=== PATIENT | female | born 1955 | race Caucasian/White ===

== ENCOUNTER 2017-09-07 05:24 | Inpatient (IN) | payer OTHER ==
[~2017-09-07] VITALS: Ht 154.9 cm; Wt 103.1 kg
[~2017-09-07 05:24] MED LIST: ADVA100A INH; FOLI1TAB6 PO; IPRAAER INH; LEVO150T7 PO; METH2.5T PO; PRIL20TA2 PO; PROZ20CA11 PO; VITA100018 PO
[2017-09-07] MEDS ORDERED: POVIDONE IODINE 5% (ANTISEPSIS KIT) 4 APPLICATIONS EACH NARE PRN (06:00)
[2017-09-07] MEDS ORDERED: ACETAMINOPHEN 1000 MG/100 ML 100 ML IV SCH (06:00)
[2017-09-07] MEDS ORDERED: INSULIN HUMAN REGULAR 1,000 UNITS/10 ML VIAL SQ PRN (06:00)
[2017-09-07] MEDS ORDERED: SODIUM CHLORID 0.9% 500 ML IV PRN (06:00)
[2017-09-07] MEDS ORDERED: APREPITANT 40 MG CAP PO SCH (06:00)
[2017-09-07] MEDS ORDERED: SCOPOLAMINE 1.5 MG PATCH T-DERMAL SCH (06:00)
[2017-09-07] MEDS ORDERED: LACTATED RINGER'S 1000 ML IV PRN (06:00)
[2017-09-07] MEDS ORDERED: CHLORHEXIDINE GLUCONATE 2 % 1 PACK (2 CLOTHS) TOPICAL PRN (06:00)
[2017-09-07] MEDS ORDERED: metroNIDAZOLE 500 MG INJ 100 ML IV SCH (06:00)
[2017-09-07] MEDS ORDERED: ONDANSETRON HCL 4 MG/2 ML VIAL IV PUSH SCH (06:00)
[2017-09-07] MEDS ORDERED: ceFAZolin 2 GM PREMIX 50 ML IV SCH (06:00)
[2017-09-07] MEDS ORDERED: METOPROLOL TARTRATE 25 MG TAB PO PRN (06:00)
[2017-09-07] MEDS ORDERED: BUPIVACAINE/EPINEPHRINE 0.25% PF 30 ML VIAL ONE (06:43)
[2017-09-07] MEDS ORDERED: DO NOT ADM ANY ANTICOAGULANT DRUGS PRN (09:40)
[2017-09-07] MEDS ORDERED: *ONDANSETRON 4 MG VIAL PERIprocedural Use ONLY ONE (09:44)
[2017-09-07] MEDS ORDERED: diphenhydrAMINE HCL 50 MG/ML VIAL IV PUSH PRN (09:45)
[2017-09-07] MEDS ORDERED: ENALAPRILAT 1.25 MG/ML VIAL IV PUSH PRN (09:45)
[2017-09-07] MEDS ORDERED: SODIUM CHLORIDE 0.9% FLUSH 10 ML FLUSH IV FLUSH PRN (09:45)
[2017-09-07] MEDS ORDERED: diphenhydrAMINE HCL ELIXIR 12.5 MG/5 ML CUP PO PRN (09:45)
[2017-09-07] MEDS ORDERED: Post-op Orders (for Pharmacy) MISC OTHER ONE (09:45)
[2017-09-07] MEDS ORDERED: *HYDROmorphone PF 1 MG VIAL PERIprocedural Use ONLY ONE (09:59)
[2017-09-07] MEDS ORDERED: *PROMETHAZINE 25 MG/ML VIAL PERIprocedural use ONLY ONE (09:59)
--- NOTE | 2017-09-07 10:00 | HHI.PR ---
Immediate Post Op Note Procedure Date: Sep 07, 2017 Pre Op Diagnosis: morbid obesity bmi 43, multiple comorbidities Post Op Diagnosis: same Surgeon: Mik Jacobs MD Retort Or Condenser Press Operator(s): Dr. Tang Procedure: lap sleeve, lap HH repair Findings: hiatal hernia, no leak with methylene blue Complications: none Specimen(s) removed: none Estimated blood loss: 10cc Anesthesia: General Drains: None Patient to: PACU Patient Condition: Good Mik Jacobs MD Sep 07, 2017 10:00
[2017-09-07] MEDS: D5-1/2 NS + KCL 20 MEQ INJ 1,000 ML IV SCH ×2 (10:20→20:00)
[2017-09-07] MEDS ORDERED: MORPHINE SULFATE 30 MG/30 ML PCA ONE (10:32)
[2017-09-07] MEDS ORDERED: NALOXONE HCL 0.4 MG/ML AMP IV PUSH PRN (10:45)
[2017-09-07] MEDS ORDERED: MORPHINE SULFATE 30 MG/30 ML PCA IV SCH (11:00)
[2017-09-07] MEDS ORDERED: METHYLENE BLUE 100 MG/10 ML VIAL OTHER ONE (12:00)
[2017-09-07] MEDS: PANTOPRAZOLE SOD 40 MG DELAYED RELEASE TAB PO SCH (12:00)
[2017-09-07] MEDS: METOCLOPRAMIDE HCL 10 MG/2 ML VIAL IV PUSH SCH ×3 (12:00→23:59)
[2017-09-07] MEDS: SODIUM CHLORIDE 0.9% FLUSH 10 ML FLUSH IV FLUSH SCH ×2 (12:00→20:31)
[2017-09-07] MEDS: ACETAMINOPHEN 1000 MG/100 ML 100 ML IV SCH ×3 (12:00→23:59)
[2017-09-07 14:00] VITALS: BP 146/69; PULSE 76; RESP 16; TEMP 96.3; O2SAT 95
[2017-09-07] MEDS: PCA - TOTAL MG MORPHINE DELIVERED PER SHIFT SCH ×2 (14:00→22:00)
[2017-09-07] MEDS: ENOXAPARIN SODIUM 40 MG/0.4 ML SYRINGE SQ SCH (14:49)
[2017-09-07] MEDS: metroNIDAZOLE 500 MG INJ 100 ML IV SCH ×2 (14:50→22:47)
[2017-09-07 16:00] VITALS: BP 144/69; PULSE 67; RESP 17; TEMP 96.4; O2SAT 93
[2017-09-07 16:45] VITALS: O2SAT 93
[2017-09-07 19:59] VITALS: O2SAT 95
[2017-09-07 20:43] VITALS: BP 181/80; PULSE 77; RESP 16; TEMP 97.4; O2SAT 96
[2017-09-08] VITALS (8 sets, daily range): BP systolic 142–208; BP diastolic 63–95; PULSE 60–83; RESP 16–20; TEMP 96.9–98.8; O2SAT 92–96
[2017-09-08] MEDS: ENALAPRILAT 2.5 MG/2 ML VIAL IV PUSH PRN ×3 (00:35→21:27)
[2017-09-08] MEDS: D5-1/2 NS + KCL 20 MEQ INJ 1,000 ML IV SCH ×3 (04:00→20:29)
[2017-09-08] MEDS: ACETAMINOPHEN 1000 MG/100 ML 100 ML IV SCH (05:22)
[2017-09-08] MEDS: METOCLOPRAMIDE HCL 10 MG/2 ML VIAL IV PUSH SCH (05:22)
[2017-09-08] MEDS: PCA - TOTAL MG MORPHINE DELIVERED PER SHIFT SCH (06:00)
--- NOTE | 2017-09-08 06:00 | MP ---
cc: EDUARDO JACOBS MD DATE OF SURGERY 09/07/2017 PREOPERATIVE DIAGNOSIS Morbid obesity, BMI of 44, multiple comorbidities. POSTOPERATIVE DIAGNOSES 1. Morbid obesity, BMI of 44, multiple comorbidities. 2. Hiatal hernia. PROCEDURE PERFORMED 1. Laparoscopic vertical sleeve gastrectomy over a 36-rench ViSiGi bougie. 2. Laparoscopic hiatal hernia repair. SURGEON Dr. Eduardo Jacobs EXPORT FREIGHT CLERK Dr. Hong Tang. The assistance of Dr. Hong Tang was necessary due to the complexity of the laparoscopic case. ANESTHESIA GETA. IV FLUIDS See anesthesia sheet. ESTIMATED BLOOD LOSS 10 cc. DRAINS None. COMPLICATIONS None. SPECIMENS None. WOUND CLASSIFICATION Clean/contaminated. INDICATION The patient is a 62-year-old female who presents with morbid obesity, multiple attempts at weight loss without success. The patient with a BMI of 44 and complications of multiple comorbidities needing elective sleeve gastrectomy. The patient also found to have hiatal hernia on endoscopy and therefore necessitating repair. FINDINGS Moderate-sized hiatal hernia. No leak on methylene blue infusion. DETAILS OF PROCEDURE The patient was taken to the operating suite, placed in supine position. She was prepped and draped in the usual sterile fashion after induction of general endotracheal anesthesia. Brief time-out was done stating correct patient, procedure surgical site. We were all in agreement with this. Attention was first directed to the subxiphoid, 15 cm distal to this in the midline. Local anesthetic injected and the skin incision made with an 11-blade. OptiView 5-mm port was used under direct visualization. Pneumoperitoneum was obtained to 15 mm pneumoperitoneum. Several other trocars were placed including right upper quadrant 5-mm liver retractor trocar, followed by a 15-mm right lower quadrant trocar, followed by a 5-mm left lower quadrant trocar and then another 5-mm left upper quadrant trocar. All ports were placed after injection of local anesthetic and under direct visualization. The patient then placed in reverse Trendelenburg and airplaned to the right. Haleigh-Flex liver retractor was placed to retract the left lobe of the liver. On close observation, noticed the hiatus had a significant hiatal hernia. The greater curvature of the stomach was using harmonic scalpel from approximately 5 cm proximal of the pylorus, carried up to the angle of His. The angle of His was taken down bluntly. Posterior ligament attachments were also placed. A 36-Turkmen bougie was then advanced at the start of the case. Attention was directed to the hiatus. The hiatus was dissected free and the stomach was reduced into the abdominal cavity once the crura on both left and right were skeletonized and identified. The hiatus was closed over the 36-Turkmen ViSiGi using 0-0 silk sutures intracorporeally in [id number] fashion. Next the division of the stomach was commenced and a sleeve gastrectomy 5 cm proximal to the pylorus toward the angle of His in order to remove approximately 80% of the stomach. This was done with Endo-BETHANY stapler initially black load, followed by green load and then four gold loads with reinforced SeamGuard. This was done 2 cm from the angle of incisura staple line close to the GE junction. Next, methylene blue was instilled, 120 cc, to confirm no leaking of the staple line and there was no evidence of extravasation. Next the gastrocolic ligament was sutured to the staple line SeamGuard using a Stratafix unidirectional suture 2-0. Next, Evicel was then sprayed along the staple line. Next, the liver retractor was removed. The sleeve gastrectomy stomach was removed from the 15-mm trocar. The 15-mm trocar site was closed with a [id number] 0 Vicryl and the suture passer. Pneumoperitoneum was removed. Incisions were closed with a 4-0 Monocryl. Sterile dressings then placed. The patient tolerated procedure well. There was no intraoperative complication. All lap and instrument counts were correct at the end of the procedure. The patient was extubated and taken stable to the PACU. MD JAH Benoit/FAVIAN /5:58 PM /5:33 AM
[2017-09-08] MEDS: metroNIDAZOLE 500 MG INJ 100 ML IV SCH (06:34)
[2017-09-08 08:35] LABS: AUTOMATED NEUTROPHIL # 5.9 TH/MM3 (1.8-7.7); BASOPHIL % 0.2 % (0.0-2.0); EOSINOPHIL % 0.2 % (0.0-4.0); HEMATOCRIT 40.8 % (35.0-46.0); HEMO FLAGS DIFF FINAL; LYMPH % 18.2 % (9.0-44.0); LYMPHOCYTE # 1.5 TH/MM3 (1.0-4.8); MEAN CELL VOLUME 99.7 FL (80.0-100.0); MEAN CORPUSCULAR HGB CONC 34.1 % (32.0-36.0); MONO % 9.2 % (0.0-8.0); NEUT % 72.2 % (16.0-70.0); PLATELET COUNT 156 TH/MM3 (150-450); RED CELL DISTRIBUTION WIDTH 13.5 % (11.6-17.2); WHITE BLOOD COUNT 8.2 TH/MM3 (4.0-11.0)
[2017-09-08] MEDS: SODIUM CHLORIDE 0.9% FLUSH 10 ML FLUSH IV FLUSH SCH ×2 (09:00→20:28)
[2017-09-08] MEDS: PANTOPRAZOLE SOD 40 MG DELAYED RELEASE TAB PO SCH (09:00)
[2017-09-08 09:05] LABS: BICARBONATE 26.6 MEQ/L (21.0-32.0)
[2017-09-08] MEDS: HYOSCYAMINE 0.125 MG TAB PO SCH ×4 (11:00→23:00)
[2017-09-08] MEDS: ONDANSETRON HCL 4 MG/2 ML VIAL IV PUSH PRN (11:28)
[2017-09-08] MEDS: METOCLOPRAMIDE HCL 10 MG/2 ML VIAL IV PUSH PRN ×2 (13:44→23:55)
[2017-09-08] MEDS: ENOXAPARIN SODIUM 40 MG/0.4 ML SYRINGE SQ SCH (15:57)
--- NOTE | 2017-09-08 16:48 | HHI.PR ---
Subjective Subjective Notes C/O 'crampy'' epigastric pain Going slow with fluids Objective Vitals/I&O Vital Signs Date Time Temp Pulse Resp B/P (MAP) Pulse Ox O2 Delivery O2 Flow Rate FiO2 09/08/17 12:00 96.9 77 17 161/74 (103) 92 09/07/17 16:45 Nasal Cannula 1.50 Labs Laboratory Tests Test 09/08/17 07:22 White Blood Count 8.2 Red Blood Count 4.10 Hemoglobin 13.9 Hematocrit 40.8 Mean Corpuscular Volume 99.7 Mean Corpuscular Hemoglobin 34.0 Mean Corpuscular Hemoglobin Concent 34.1 Red Cell Distribution Width 13.5 Platelet Count 156 Mean Platelet Volume 8.6 Neutrophils (%) (Auto) 72.2 Lymphocytes (%) (Auto) 18.2 Monocytes (%) (Auto) 9.2 Eosinophils (%) (Auto) 0.2 Basophils (%) (Auto) 0.2 Neutrophils # (Auto) 5.9 Lymphocytes # (Auto) 1.5 Monocytes # (Auto) 0.8 Eosinophils # (Auto) 0.0 Basophils # (Auto) 0.0 CBC Comment DIFF FINAL Differential Comment Blood Urea Nitrogen 7 Creatinine 0.80 Random Glucose 121 Calcium Level 8.4 Magnesium Level 2.0 Sodium Level 138 Potassium Level 4.0 Chloride Level 104 Carbon Dioxide Level 26.6 Anion Gap 7 Estimat Glomerular Filtration Rate 73 Abdomen: Post-op tenderness Extremities: Perfused Wound Wound : Wound Location: Abdomen Appearance: Clean & Dry A/P Assessment and Plan 62yo F laparoscopic POD#1 VSG with hiatal hernia repair -Added Levsin and will add Carafate for epigastric discomfort -Decrease IVF to 100ml/hr -Transition to oral pain control -Continue to increase oral intake as tolerated -Continue with frequent ambulation Discharge Planning D/C home tomorrow Attending Statement patient seen at bedside some burning but doing well ambulating d/c tomorrow Attestation The exam, history, and the medical decision-making described in the above note were completed with the assistance of the mid-level provider. I reviewed and agree with the findings presented. I attest that I had a [id number] encounter with the patient on the same day, and personally performed and documented my assessment and findings in the medical record. Sherrie Levin Sep 08, 2017 16:48 Mik Jacobs MD Sep 12, 2017 21:40
[2017-09-08] MEDS: SUCRALFATE 1 GM/10 ML CUP PO SCH ×2 (18:35→20:28)
[2017-09-09] VITALS (7 sets, daily range): BP systolic 130–213; BP diastolic 60–97; PULSE 74–90; RESP 17–20; TEMP 96.6–98.1; O2SAT 94–95
[2017-09-09] MEDS ORDERED: cloNIDine HCL 0.1 MG TAB PO ONE (00:45)
--- NOTE | 2017-09-09 02:11 | PD.CONS ---
[facility] By [facility]. Pleitez . Reason for Consult Hypertension . Primary Care Physician Non-Staff Diagnoses: (1) Postoperative hypertension History of Present Illness Written by Yohana Clements, acting as scribe for Dr. Hernandez on 09/09/17 at 02:11. The patient is seen in her hospital room and reports the following: Hiatal hernia repair and gastric sleeve by Dr. Jacobs on 09/07/17 Pain in upper abdomen; tightness in bandlike distribution - Morphine pump discontinued at 5 p.m. and pain has been increasing since that time Eating only liquids Has not moved bowels Burping but not passing gas Denies fever Denies history of hypertension Anxiety: Takes Paxil at home but denies benzodiazepine use Denies daily alcohol Vomited three times yesterday after drinking fluid Dark blood noted in her mucus - clot Prior to surgery: denies nausea, vomiting, diarrhea, chest pain, shortness of breath, syncope, dysuria, black or bloody stools. This note was transcribed by scribe [Yohana Clements]. I, Dr. Tangela Hernandez personally performed the history, physical exam, and medical decision making; and confirmed the accuracy of the information in the transcribed note. Authenticated by Dr. Tangela Hernandez on 09/09/17 at 02:11. Review of Systems Except as stated in HPI: all other systems reviewed are Neg Past Family Social History Allergies: Coded Allergies: No Known Allergies (Unverified , 09/05/17) Past Medical History Asthma Hepatic Steatosis Partial nephrectomy for renal CA on left 2000 - cancer was encapsulated and didn 't need any radiation or chemotherapy Rheumatic Arthritis with last dose of methotrexate August 20, 2017 Denies diabetes, hypertension, CAD, CHF, atrial fibrillation, DVT, PE, CVA, seizures, or thyroid problems . Past Surgical History Cholecystectomy Left rotator cuff repair Left kidney partial nephrectomy . Reported Medications Reported Meds & Active Scripts Active Reported Methotrexate 2.5 Mg Tab 4 Mg PO Q7D Folic Acid 1 Mg Tablet 1 Mg PO DAILY Advair Diskus Inh (Fluticasone-Salmeterol Inh) 100-50 Mcg/Blist Aer 1 Puff INH BID Rinse mouth after use. Combivent Respimat Inh (Ipratropium-Albuterol Inh) 20-100 Penitentiary/Act Aero 1 Puff INH QID PRN Prilosec (Omeprazole Magnesium) 20 Mg Tab 20 Mg PO DAILY Prozac (Fluoxetine HCl) 20 Mg Cap 20 Mg PO DAILY Vitamin D3 (Cholecalciferol) 1,000 Unit Tab 1,000 Units PO DAILY Levothyroxine (Levothyroxine Sodium) 150 Mcg Tab 150 Mcg PO DAILY . Active Ordered Medications Current Medications Lactated Ringer's 1,000 ml @ 30 mls/hr Q24H PRN IV SEE LABEL COMMENTS Last administered on 09/07/17 06:00; Start 09/07/17 at 06:00; Stop 09/07/17 at 11 :49; Status DC Sodium Chloride 500 ml @ 30 mls/hr [id number] PRN IV SEE LABEL COMMENTS; Start at 06:00; Stop 09/07/17 at 11:49; Status DC Metoprolol Tartrate (Lopressor) 25 mg INVESTIGATION OFFICER PRN PO SEE LABEL COMMENTS; Start 09/07/17 at 06:00; Stop 09/10/17 at 05:59 Povidone Iodine (Betadine 5% Antisepsis Kit) 1 applic INVESTIGATION OFFICER PRN EACH NARE SEE LABEL COMMENTS Last administered on 09/07/17 06:09; Start 09/07/17 at 06: 00; Stop 09/10/17 at 05:59 Chlorhexidine Gluconate (Chlorhexidine 2% Cloth) 3 pack INVESTIGATION OFFICER PRN TOPICAL SEE LABEL COMMENTS Last administered on 09/07/17 05:40; Start 09/07/17 at 06: 00; Stop 09/10/17 at 05:59 Insulin Human Regular (NovoLIN R INJ) See Protocol Table ... INVESTIGATION OFFICER PRN SQ SEE PROTOCOL TABLE; Start 09/07/17 at 06:00; Stop 09/10/17 at 05:59 Cefazolin Sodium/ Dextrose 50 ml @ 150 mls/hr INVESTIGATION OFFICER IV Last administered on 09/07/17 08:53; Start 09/07/17 at 06:00; Stop 09/10/17 at 05:59 Metronidazole 100 ml @ 200 mls/hr INVESTIGATION OFFICER IV Last administered on 09/07/17 06:10; Start 09/07/17 at 06:00; Stop 09/10/17 at 05:59 Aprepitant (Emend) 40 mg INVESTIGATION OFFICER PO Last administered on 09/07/17 05:59; Start 09/07/17 at 06:00; Stop 09/10/17 at 05:59 Acetaminophen 100 ml @ 400 mls/hr INVESTIGATION OFFICER IV Last administered on 09/07/17 06:03; Start 09/07/17 at 06:00; Stop 09/10/17 at 05:59 Ondansetron HCl (Zofran Inj) 4 mg INVESTIGATION OFFICER IV PUSH Last administered on 06:00; Start 09/07/17 at 06:00; Stop 09/10/17 at 05:59 Scopolamine (Transderm-Scop 1.5 Mg Patch.72 Hr) 1 patch INVESTIGATION OFFICER T-DERMAL Last administered on 09/07/17 05:58; Start 09/07/17 at 06:00; Stop 09/10/17 at 05: 59 Bupivacaine HCl/ Epinephrine Bitart (Marcaine-Epi Pf 0.25% Inj) 30 ml STK-MED ONCE .ROUTE Last administered on 09/07/17 08:05; Start 09/07/17 at 06:43; Stop 09/07/17 at 06:44; Status DC Methylene Blue (Methylene Blue Inj) 5 mg ONCE ONCE OTHER ; Start 09/07/17 at 12:00; Stop 09/07/17 at 12:01; Status DC Potassium Chloride/Dextrose/ Sod Cl 1,000 ml @ 100 mls/hr Q10H IV Last administered on 09/08/17 18:35; Start 09/07/17 at 12:00 Sodium Chloride (NS Flush) 2 ml UNSCH PRN IV FLUSH FLUSH AFTER USING IV ACCESS ; Start 09/07/17 at 09:45 Sodium Chloride (NS Flush) 2 ml BID IV FLUSH Last administered on 09/07/17 12 :00; Start 09/07/17 at 12:00 Miscellaneous Information (Post-op Orders (for Pharmacy)) STAT ONCE OTHER ; Start 09/07/17 at 09:45; Stop 09/07/17 at 11:46; Status DC Cefazolin Sodium 1000 mg/Sodium Chloride 100 ml @ 200 mls/hr Q8H IV Last administered on 09/08/17 11:30; Start 09/07/17 at 16:00; Stop 09/08/17 at 08 :29; Status DC Metronidazole 100 ml @ 100 mls/hr Q8H IV Last administered on 09/08/17 06:34 ; Start 09/07/17 at 15:00; Stop 09/08/17 at 07:59; Status DC Pantoprazole Sodium (Protonix) 40 mg DAILY PO ; Start 09/07/17 at 12:00 Enoxaparin Sodium (Lovenox Inj) 40 mg Q24H SQ Last administered on 09/08/17 15:57; Start 09/07/17 at 14:00 Acetaminophen/ Hydrocodone Bitart (Hycet 325-7.5 Mg Liq) 10 ml Q6H PRN PO PAIN SCALE 1 TO 5; Start 09/07/17 at 09:45 Acetaminophen/ Hydrocodone Bitart (Hycet 325-7.5 Mg Liq) 15 ml Q6H PRN PO PAIN SCALE 6 TO 10; Start 09/07/17 at 09:45 Diphenhydramine HCl (Benadryl Inj) 25 mg Q6H PRN IV PUSH ITCHING; Start at 09:45 Diphenhydramine HCl (Benadryl Liq) 25 mg Q6H PRN PO ITCHING; Start 09/07/17 at 09:45 Metoclopramide HCl (Reglan Inj) 10 mg Q6H IV PUSH Last administered on 05:22; Start 09/07/17 at 12:00; Stop 09/08/17 at 06:01; Status DC Metoclopramide HCl (Reglan Inj) 10 mg Q6H PRN IV PUSH NAUSEA OR VOMITING Last administered on 09/08/17 23:55; Start 09/08/17 at 12:00 Ondansetron HCl (Zofran Inj) 4 mg Q6H PRN IV PUSH NAUSEA OR VOMITING Last administered on 09/08/17 11:28; Start 09/07/17 at 09:45 Acetaminophen 100 ml @ 400 mls/hr Q6HR IV Last administered on 09/08/17 05: 22; Start 09/07/17 at 12:00; Stop 09/08/17 at 06:14; Status DC Enalaprilat (Vasotec Inj) 1.25 mg Q6H PRN IV PUSH SYS BP GREATER THAN 160 MMHG Last administered on 09/07/17 20:42; Start 09/07/17 at 09:45; Stop 09/08/17 at 00:18; Status DC Ondansetron HCl (*ZOFRAN INJ PERIprocedural ONLY) 4 mg STK-MED ONCE .ROUTE Last administered on 09/07/17 09:44; Start 09/07/17 at 09:44; Stop 09/07/17 at 09:45; Status DC Hydromorphone HCl (*DILAUDID PF INJ PERIprocedural ONLY) 1 mg STK-MED ONCE .ROUTE Last administered on 09/07/17 09:59; Start 09/07/17 at 09:59; Stop 09/07/17 at 10:00; Status DC Promethazine HCl (*PHENERGAN INJ PERIprocedural ONLY) 25 mg STK-MED ONCE .ROUTE Last administered on 09/07/17 09:59; Start 09/07/17 at 09:59; Stop at 10:00; Status DC Morphine Sulfate (Morphine 1 Mg/ ml MASK DESIGN ENGINEER) 30 mg STK-MED ONCE .ROUTE ; Start at 10:32; Stop 09/07/17 at 10:33; Status DC Morphine Sulfate (Morphine 1 Mg/ ml MASK DESIGN ENGINEER) 30 mg UNSCH IV Last administered on 12:54; Start 09/07/17 at 11:00; Stop 09/08/17 at 16:31; Status DC MASK DESIGN ENGINEER Dosage Infused (Pha) 1 Q8HR .XX Last administered on 09/08/17 06:00; Start 09/07/17 at 14:00; Stop 09/08/17 at 16:31; Status DC Naloxone HCl (Narcan Inj) 0.4 mg UNSCH PRN IV PUSH RESPIRATORY RATE LESS THAN 10; Start 09/07/17 at 10:45; Stop 09/08/17 at 16:31; Status DC Miscellaneous Information ALL NURSING DEPARTME... UNSCH PRN .XX SEE LABEL COMMENTS; Start 09/07/17 at 09:40; Stop 09/08/17 at 09:39; Status DC Enalaprilat (Vasotec Inj) 2.5 mg Q6H PRN IV PUSH SBP >180 AND DBP >90 Last administered on 09/08/17 21:27; Start 09/08/17 at 00:30; Stop 09/08/17 at 21 :34; Status DC Hyoscyamine Sulfate (Levsin) 0.125 mg Q4H PO Last administered on 09/08/17 23 :00; Start 09/08/17 at 11:00 Sucralfate (Carafate Liq) 1 gm ACHS PO Last administered on 09/08/17 20:28; Start 09/08/17 at 17:00 Enalaprilat (Vasotec Inj) 2.5 mg Q4H PRN IV PUSH SBP >160; Start 09/08/17 at 21:45 Clonidine (Catapres) 0.1 mg ONCE ONCE PO Last administered on 09/09/17 00:56 ; Start 09/09/17 at 00:45; Stop 09/09/17 at 00:52; Status DC . Family History Sister from glioblastosis Parents from complications related to alcohol abuse . Social History Smoking: denies Alcohol: socially Illicit Drugs: denies . Physical Exam Vital Signs Vital Signs Date Time Temp Pulse Resp B/P (MAP) Pulse Ox O2 Delivery O2 Flow Rate FiO2 09/09/17 00:22 98.1 85 18 213/97 (135) 95 09/08/17 21:20 98.2 83 20 208/95 (132) 95 09/08/17 21:04 96 21 09/08/17 16:00 98.1 83 17 183/80 (114) 93 09/08/17 12:00 96.9 77 17 161/74 (103) 92 09/08/17 08:00 97.3 77 16 142/63 (89) 93 09/08/17 06:00 18 09/08/17 04:56 98.8 69 18 158/80 (106) 94 Physical Exam GENERAL: This is a morbidly obese female patient, in no apparent distress. SKIN: No rashes, ecchymoses or lesions. Cool and dry. Lap incisions with steri- strips. HEAD: Atraumatic. Normocephalic. EYES: No scleral icterus. No injection or drainage. ENT: Nose without bleeding, purulent drainage. NECK: Trachea midline. No JVD or lymphadenopathy. CARDIOVASCULAR: Regular rate and rhythm without murmurs, gallops, or rubs. RESPIRATORY: Clear to auscultation. Breath sounds equal bilaterally. No wheezes , rales, or rhonchi. GASTROINTESTINAL: Hypoactive bowel sounds. Abdomen soft, tender, nondistended. No guarding. MUSCULOSKELETAL: Extremities without clubbing, cyanosis, or edema. No calf tenderness. NEUROLOGICAL: Awake and alert. Motor and sensory grossly within normal limits. Normal speech. . Laboratory Laboratory Tests Test 09/08/17 07:22 White Blood Count 8.2 Red Blood Count 4.10 Hemoglobin 13.9 Hematocrit 40.8 Mean Corpuscular Volume 99.7 Mean Corpuscular Hemoglobin 34.0 Mean Corpuscular Hemoglobin Concent 34.1 Red Cell Distribution Width 13.5 Platelet Count 156 Mean Platelet Volume 8.6 Neutrophils (%) (Auto) 72.2 Lymphocytes (%) (Auto) 18.2 Monocytes (%) (Auto) 9.2 Eosinophils (%) (Auto) 0.2 Basophils (%) (Auto) 0.2 Neutrophils # (Auto) 5.9 Lymphocytes # (Auto) 1.5 Monocytes # (Auto) 0.8 Eosinophils # (Auto) 0.0 Basophils # (Auto) 0.0 CBC Comment DIFF FINAL Differential Comment Blood Urea Nitrogen 7 Creatinine 0.80 Random Glucose 121 Calcium Level 8.4 Magnesium Level 2.0 Sodium Level 138 Potassium Level 4.0 Chloride Level 104 Carbon Dioxide Level 26.6 Anion Gap 7 Estimat Glomerular Filtration Rate 73 Result Diagram: 09/08/1772109/08/17721 Assessment and Plan Problem List: (1) Postoperative hypertension ICD Code: I97.3 - Postprocedural hypertension Assessment and Plan Ms. Erazo is a 62 y/o female who underwent a hiatal hernia repair and gastric sleeve by Dr. Jacobs on 09/07/17. She developed post-operative hypertension and [facility] were consulted to manage hypertension. Post operative Hypertension - suspect this is secondary to post-operative pain - patient has no history of hypertension pre-operatively - BP as high as 213/97 - the patient's blood pressure has been elevated throughout hospitalization but systolic baseline appears to be 140's - consider undiagnosed pre-existing hypertension - Discussed with nursing - patient needs to be medicated for pain - Enalapril 2.5 mg IV q4h PRN sbp > 160 if analgesic medications are effective in management of pain but hypertension persists - will monitor blood pressure readings and adjust treatments as indicated . Discussed Condition With Patient and RN . Yohana Clements Sep 09, 2017 02:11 Tangela Hernandez MD Sep 09, 2017 07:51
[2017-09-09] MEDS: ACETAMINOPHEN 325MG/HYDROcodone 7.5MG/15ML UDC PO PRN ×5 (02:38→17:49)
[2017-09-09] MEDS: HYOSCYAMINE 0.125 MG TAB PO SCH ×5 (02:38→23:02)
[2017-09-09] MEDS: D5-1/2 NS + KCL 20 MEQ INJ 1,000 ML IV SCH ×2 (05:42→16:03)
[2017-09-09] MEDS: SUCRALFATE 1 GM/10 ML CUP PO SCH ×5 (08:00→23:02)
[2017-09-09] MEDS: PANTOPRAZOLE SOD 40 MG DELAYED RELEASE TAB PO SCH (08:49)
[2017-09-09] MEDS: SODIUM CHLORIDE 0.9% FLUSH 10 ML FLUSH IV FLUSH SCH ×2 (08:50→21:00)
--- NOTE | 2017-09-09 11:11 | HHI.PR ---
Subjective Remarks Follow-up visit. Hypertension, hypothyroidism, status post gastric sleeve, hiatal hernia repair. Patient seen and examined today sitting in bed. Reports has been in and out of bed to go to the bathroom. States she continues to have abdominal pain that feels like there is a band around her belly. Relieved by pain medication. States that she is now calling her nurse she is due for pain medication. Patient reports that she was never diagnosed with hypertension as an outpatient but she does have hypothyroidism which she states that she hasn't been taking her Synthroid for approximately 5 days now since she has been in the hospital. Denies SOB/ dyspnea. Denies chest pain, palpitations, headaches , dizziness. Denies fevers, chills, n/v/d. Denies dysuria. Objective Vitals Vital Signs Date Time Temp Pulse Resp B/P (MAP) Pulse Ox O2 Delivery O2 Flow Rate FiO2 09/09/17 10:51 95 09/09/17 08:00 97.7 76 17 130/68 (88) 95 09/09/17 05:01 96.7 77 18 130/60 (83) 95 09/09/17 03:38 18 09/09/17 00:22 98.1 85 18 213/97 (135) 95 09/08/17 21:20 98.2 83 20 208/95 (132) 95 09/08/17 21:04 96 21 09/08/17 16:00 98.1 83 17 183/80 (114) 93 09/08/17 12:00 96.9 77 17 161/74 (103) 92 I/O 09/08/17 09/08/17 09/08/17 09/09/17 09/09/17 09/09/17 07:00 15:00 23:00 07:00 15:00 23:00 Intake Total 1520 ml 200 ml 1180 ml 1000 ml Output Total 1200 ml 1100 ml Balance 320 ml 200 ml 80 ml 1000 ml Intake Oral 120 ml 180 ml IV Total 1400 ml 200 ml 1000 ml 1000 ml Output Urine Total 1200 ml 1100 ml # Voids 2 # Bowel Movements 0 Result Diagram: 09/08/1772109/08/17721 Objective Remarks GENERAL: This is a well-nourished, well-developed patient, in no apparent distress. SKIN: Warm and dry. HEENT: Normocephalic. Pupils equal round and reactive. Nose without bleeding. Airway patent. NECK: Trachea midline. No JVD. Supple. CARDIOVASCULAR: Regular rate and rhythm without murmurs, gallops, or rubs. RESPIRATORY: Clear to auscultation. Breath sounds equal bilaterally. No wheezes , rales, or rhonchi. GASTROINTESTINAL: Abdomen soft, non-tender, nondistended. Bowel Sounds hypoactive. MUSCULOSKELETAL: Extremities without clubbing, cyanosis, or edema. NEUROLOGICAL: Awake and alert. Oriented to time, place, person. No focal neuro deficit. Moves all extremities. Normal speech. A/P Problem List: (1) Postoperative hypertension ICD Code: I97.3 - Postprocedural hypertension Assessment and Plan Ms. Erazo is a 62 y/o female who underwent a hiatal hernia repair and gastric sleeve by Dr. Jacobs on 09/07/17. She developed post-operative hypertension and [facility] were consulted to manage hypertension. Post op hypertension - Suspected secondary to postop pain. Now that the patient's pain is manageable, BP has been within normal - Discuss with patient didn't want to continue to trend her blood pressure and if it continues to be elevated more than 140s, will start her with BP medications and she would follow up with her PCP for continuous BP management. - Patient has been agreeable with plan. - Continue with when necessary enalapril 2.5 mg every 4 when necessary. - If BP continues to be elevated start patient on low-dose lisinopril 10 mg daily Hypothyroidism - Restart levothyroxine 150 g daily. -Check TSH DVT prop early ambulation Discharge Planning Discharge planning per primary team Attending Statement The exam, history, and the medical decision-making described in the above note were completed with the assistance of the mid-level provider. I reviewed and agree with the findings presented. I attest that I had a [id number] encounter with the patient on the same day, and personally performed and documented my assessment and findings in the medical record. Patient stated that she had episode of nausea after trying clear liquid diet. She states she had multiple episodes yesterday. Denied any abdominal pain Gen NAD CV RRR. no r//m/g Abd soft NDNT Ext negative edema Status post hiatal hernia repair and gastric sleeve Postoperative hypertension Blood pressure has seemed very labile. Most likely secondary to pain. With PRN antihypertensive medication. Once pain better controlled blood pressure also improved. In terms of patient's surgery management per primary team. Gurdeep Arthur Sep 09, 2017 11:11 Yuridia Jones MD Sep 09, 2017 14:31
[2017-09-09] MEDS: ONDANSETRON HCL 4 MG/2 ML VIAL IV PUSH PRN (11:43)
--- NOTE | 2017-09-09 12:13 | HHI.PR ---
Subjective Subjective Notes C/O increase nausea BP elevated despite medications, no hx of HTN prior to surgery Objective Vitals/I&O Vital Signs Date Time Temp Pulse Resp B/P (MAP) Pulse Ox O2 Delivery O2 Flow Rate FiO2 09/09/17 10:51 95 09/09/17 08:00 97.7 76 17 130/68 (88) 09/08/17 21:04 21 09/07/17 16:45 Nasal Cannula 1.50 Labs Laboratory Tests Test 09/09/17 07:22 Cardiovascular: Regular Lungs: Clear Abdomen: Post-op tenderness (epigastric discomfort) Extremities: Perfused Wound Wound : Wound Location: Abdomen Appearance: Clean & Dry A/P Assessment and Plan 62yo F laparoscopic POD#1 VSG with hiatal hernia repair -Change Reglan to scheduled -One time dose of Phenergan suppository and Decadron -Appreciate input from Medicine concerning hypertension Discharge Planning D/C home possibly tomorrow Attending Statement patient seen at bedside appreciate medicine recs for htn some nausea but tolerating liquids Attestation The exam, history, and the medical decision-making described in the above note were completed with the assistance of the mid-level provider. I reviewed and agree with the findings presented. I attest that I had a [id number] encounter with the patient on the same day, and personally performed and documented my assessment and findings in the medical record. Sherrie Levin Sep 09, 2017 12:13 Mik Jacobs MD Sep 12, 2017 21:43
[2017-09-09] MEDS ORDERED: PROMETHAZINE HCL 25 MG SUPP RECTAL ONE (12:15)
[2017-09-09] MEDS ORDERED: DEXAMETHASONE SOD PHOS 20 MG/5 ML VIAL IV PUSH ONE (12:15)
[2017-09-09] MEDS: ENALAPRILAT 2.5 MG/2 ML VIAL IV PUSH PRN ×2 (12:19→12:23)
[2017-09-09] MEDS: ENOXAPARIN SODIUM 40 MG/0.4 ML SYRINGE SQ SCH (13:44)
[2017-09-09] MEDS ORDERED: METOCLOPRAMIDE HCL 10 MG/2 ML VIAL IV PUSH PRN (14:00)
[2017-09-09] MEDS: LEVOTHYROXINE SODIUM 150 MCG TAB PO SCH (17:45)
[2017-09-10] MEDS: D5-1/2 NS + KCL 20 MEQ INJ 1,000 ML IV SCH (02:23)
[2017-09-10] MEDS: HYOSCYAMINE 0.125 MG TAB PO SCH ×2 (03:00→06:15)
[2017-09-10] MEDS: LEVOTHYROXINE SODIUM 150 MCG TAB PO SCH (06:18)
[2017-09-10 07:26] VITALS: BP 146/74; PULSE 66; RESP 19; TEMP 96.9; O2SAT 92
[2017-09-10] MEDS: PANTOPRAZOLE SOD 40 MG DELAYED RELEASE TAB PO SCH (08:18)
[2017-09-10] MEDS: SUCRALFATE 1 GM/10 ML CUP PO SCH (08:18)
[2017-09-10] MEDS: SODIUM CHLORIDE 0.9% FLUSH 10 ML FLUSH IV FLUSH SCH (08:18)
--- NOTE | 2017-09-10 08:29 | HHI.PR ---
Subjective Subjective Notes no acute issues, bp much better, pt feels better, no nausea, +flatus Objective Vitals/I&O Vital Signs Date Time Temp Pulse Resp B/P (MAP) Pulse Ox O2 Delivery O2 Flow Rate FiO2 09/10/17 07:26 96.9 66 19 146/74 (98) 92 09/08/17 21:04 21 09/07/17 16:45 Nasal Cannula 1.50 Abdomen: Other (incisional tenderness) A/P Assessment and Plan s/p Sleeve gastrectomy PLAN liquid diet oob pain control po d/c home today Mik Jacobs MD Sep 10, 2017 08:29
--- NOTE | 2017-09-10 09:40 | HHI.PR ---
Subjective Remarks Follow-up visit. Hypertension, hypothyroidism, status post gastric sleeve, hiatal hernia repair. Patient seen and examined today sitting in chair. Reports she is doing well. States that pain is now manageable it's not bothering her as much. Patient reports that her blood pressure has been within normal today. States that she has white coat syndrome and that she has been checked before by her primary care doctor where in she was on monitor for 24 hours for her blood pressure and has noted that it was normal when she is at home. Discussed with patient that she will follow-up with primary care doctor for continued monitoring of her blood pressure and determine if she will be started on BP meds. Denies pain and discomfort. Denies SOB/ dyspnea. Denies chest pain, palpitations, headaches, dizziness. Denies fevers, chills, n/v/d. Denies dysuria. Objective Vitals Vital Signs Date Time Temp Pulse Resp B/P (MAP) Pulse Ox O2 Delivery O2 Flow Rate FiO2 09/10/17 07:26 96.9 66 19 146/74 (98) 92 09/09/17 20:00 97.8 74 20 138/62 (87) 94 09/09/17 16:00 96.6 86 17 137/77 (97) 94 09/09/17 12:00 98.0 90 18 172/77 (108) 95 09/09/17 10:51 95 I/O 09/09/17 09/09/17 09/09/17 09/10/17 09/10/17 09/10/17 07:00 15:00 23:00 07:00 15:00 23:00 Intake Total 1000 ml 1330 ml 1480 ml Output Total 3600 ml 1100 ml Balance 1000 ml -2270 ml 380 ml Intake Oral 330 ml 480 ml IV Total 1000 ml 1000 ml 1000 ml Output Urine Total 3600 ml 1100 ml # Voids 2 # Bowel Movements 0 Result Diagram: 09/08/1772109/08/17721 Objective Remarks GENERAL: This is a well-nourished, well-developed patient, in no apparent distress. SKIN: Warm and dry. HEENT: Normocephalic. Pupils equal round and reactive. Nose without bleeding. Airway patent. NECK: Trachea midline. No JVD. Supple. CARDIOVASCULAR: Regular rate and rhythm without murmurs, gallops, or rubs. RESPIRATORY: Clear to auscultation. Breath sounds equal bilaterally. No wheezes , rales, or rhonchi. GASTROINTESTINAL: Abdomen soft, non-tender, nondistended. Bowel Sounds hypoactive. Incision sites are clean dry and intact. MUSCULOSKELETAL: Extremities without clubbing, cyanosis, or edema. NEUROLOGICAL: Awake and alert. Oriented to time, place, person. No focal neuro deficit. Moves all extremities. Normal speech. A/P Problem List: (1) Postoperative hypertension ICD Code: I97.3 - Postprocedural hypertension Assessment and Plan Ms. Erazo is a 62 y/o female who underwent a hiatal hernia repair and gastric sleeve by Dr. Jacobs on 09/07/17. She developed post-operative hypertension and [facility] were consulted to manage hypertension. Post op hypertension - Suspected secondary to postop pain. Now that the patient's pain is manageable, BP has been within normal - Discuss with patient didn't want to continue to trend her blood pressure and if it continues to be elevated more than 140s, will start her with BP medications and she would follow up with her PCP for continuous BP management. - Patient has been agreeable with plan. - Continue with when necessary enalapril 2.5 mg every 4 when necessary. - Improved - Follow up with PCP Hypothyroidism - Restart levothyroxine 150 g daily. - Follow up with PCP DVT prop early ambulation Discussed with patient, Dr. Del Rio from Hospitalist standpoint. Discharge Planning Discharge planning per primary team Gurdeep Arthur Sep 10, 2017 9:40 am
== END 2017-09-10 10:57 | disposition home or self-care (01) | DRG 621 ==
LOC: HSDI 05:24 → N07B 13:15
PROVIDERS: ADMIT Surgery; ATTEND Surgery
PROC: 0BQT4ZZ Repair Diaphragm, Percutaneous Endoscopic Approach (ICD-10-PCS; 2017-09-07)
PROC: 0DB64Z3 Excision of Stomach, Percutaneous Endoscopic Approach, Vertical (ICD-10-PCS; principal; 2017-09-07 07:31)
DX: E66.01 Morbid (severe) obesity due to excess calories (principal); K76.0 Fatty (change of) liver, not elsewhere classified; Z68.41 Body mass index [BMI] 40.0-44.9, adult; K44.9 Diaphragmatic hernia without obstruction or gangrene; I97.3 Postprocedural hypertension; M06.9 Rheumatoid arthritis, unspecified; J45.909 Unspecified asthma, uncomplicated; E03.9 Hypothyroidism, unspecified; K21.9 Gastro-esophageal reflux disease without esophagitis; F32.9 Major depressive disorder, single episode, unspecified; Z85.528 Personal history of other malignant neoplasm of kidney
CPT/HCPCS: 80048; 83735; 84443; 85025; 94150; J0131; J0690; J1100; J1170; J1650; J2270; J2405; J2550; J2765; J3480; J7120; J8501